=== PATIENT | male | born 1965 | race Caucasian/White ===

== ENCOUNTER → 2017-01-14 | Outpatient (CLI) | payer OTHER ==
[~2017-01-14] MED LIST: BIDIL TABLET1 EACH PO; ERYTHROMYCIN250 M1 PO; NITROSTAT0.4 MG SL; PROTONIX40 MG PO; REGLAN10 MG PO; TOPROL XL 25 MG25 MG PO; ZYRTEC10 MG PO
[2017-01-14 08:28] LABS: RED BLOOD COUNT 4.63 M/UL (4.20-5.50); WHITE BLOOD COUNT 7.8 K/UL (4.5-11.0)
[2017-01-14 08:42] LABS: BUN/CREATININE RATIO 20 (0-10)
== END | disposition home or self-care (01) ==
LOC: CATH 07:46
PROVIDERS: Internal Medicine Interventional Cardiology
DX: I20.9 Angina pectoris, unspecified (principal); R94.39 Abnormal result of other cardiovascular function study; R07.9 Chest pain, unspecified; I10 Essential (primary) hypertension; E11.9 Type 2 diabetes mellitus without complications; R06.02 Shortness of breath; Z91.040 Latex allergy status; Z79.899 Other long term (current) drug therapy
CPT/HCPCS: 80048; 85025; 85610; 85730; 93005; C1769; J0461; J0583; J1644; J2250; J3010; J7030; Q0163; Q9963